=== PATIENT | female | born 1990 | race Caucasian/White ===

== ENCOUNTER 2017-05-03 00:53 | Emergency (ER) | payer OTHER ==
[2017-05-03] MEDS ORDERED: Ondansetron HCl/PF 4 MG/2 ML Vial ONE ×3 (01:30→02:38)
[2017-05-03 01:42] LABS: Bilirubin Negative (Negative); Blood, Urine Negative (Negative); Clarity Hazy (Clear); Glucose, Urine (Dipstick) Negative (Negative); Leukocyte Negative (Negative); Nitrite Negative (Negative); Protein, Urine (Dipstick) 30 mg/dL (Neg-Trace); Specific Gravity, Urine 1.025 (1.005-1.030)
[2017-05-03 01:49] LABS: Bacteria/HPF 1+ HPF (None Seen); RBC/HPF 0-3 HPF (0-3); Squamous Epithelial 0-3 HPF (0-3); WBC/HPF 0-3 HPF (0-3)
[2017-05-03 01:50] LABS: Crystals/HPF 1+ AMORPH URATES HPF (Negative); Other Microscopic Description 1+ MUCUS
[2017-05-03 01:51] LABS: #Basophils 0.1 thou/uL (0.0-0.2); #Lymphocytes 0.8 thou/uL (1.20-3.40); #Monocytes 0.4 thou/uL (0.11-0.59); #Neutrophils 6.7 thou/uL (1.40-6.50); %Basophils 0.7 % (0.0-1.0); %Eosinophils 0.4 % (0.0-10.0); %Lymphocytes 10.3 % (21.0-51.0); %Monocytes 4.8 % (0.0-10.0); %Neutrophils 83.8 % (42.0-75.0); Hemoglobin 13.7 g/dL (12.0-16.0); Mean Corpuscular HGB CONC 35.5 g/dL (32.0-36.0); Mean Corpuscular Hemoglobin 33.1 pg (27.0-31.0); Mean Corpuscular Volume 93.3 fl (81.0-99.0); Mean Platelet Volume 10.6 fL (7.4-10.4); Platelet Count 156 thou/uL (130-400); RBC Distribution Width 12.7 % (11.5-14.5); Red Blood Cell (RBC) Count 4.13 mill/uL (4.20-5.40)
[2017-05-03 02:01] LABS: Anion Gap 16 mmol/L (10-20); BUN (Urea Nitrogen) 8 mg/dL (7.0-18.7); Calc. Creatinine Clearance 0 mL/min (70-130); Calcium 8.7 mg/dL (7.8-10.44); Carbon Dioxide 19 mmol/L (22-29); Chloride 106 mmol/L (98-107); Estimated GFR-MDRD Greater than 90; Glucose 91 mg/dL (70-105); Potassium 4.2 mmol/L (3.5-5.1); Sodium 137 mmol/L (136-145)
[2017-05-03] MEDS ORDERED: Promethazine HCl 25 MG/ML VIAL ONE (03:20)
== END 2017-05-03 07:30 | disposition home or self-care (01) ==
LOC: BURERS 00:53
DX: O99.612 Diseases of the digestive system complicating pregnancy, second trimester (principal); K52.9 Noninfective gastroenteritis and colitis, unspecified; Z3A.27 27 weeks gestation of pregnancy
CPT/HCPCS: 80048; 81003; 81015; 85025; 96361; 96365; 96367; 96376; J2405; J2550

== ENCOUNTER 2017-08-27 15:00 | Outpatient (CLI) | payer OTHER ==
--- NOTE | 2017-08-28 07:27 | RAD ---
THORACIC SPINE TWO VIEWS 08/27/17 No fracture, dislocation, or disc space narrowing was seen. The paravertebral soft tissues are normal in thickness. IMPRESSION: No significant finding. POS: HOME
--- NOTE | 2017-08-28 07:28 | RAD ---
LUMBAR SPINE THREE VIEWS . Comparison is made with an 04/20/13 study. No fracture, dislocation, or disc space narrowing was seen. No bony anomalies were apparent. The SI j oints are symmetrical. IMPRESSION: Stable exam showing no acute finding. POS: HOME
== END 2017-08-27 15:01 | disposition home or self-care (01) ==
LOC: BURRAD 15:00
PROVIDERS: ATTEND Physician Assistant
DX: M54.6 Pain in thoracic spine (principal)
CPT/HCPCS: 72070; 72100

== ENCOUNTER 2018-08-10 17:28 | Emergency (ER) | payer OTHER, SELFPAY ==
--- NOTE | 2018-08-10 22:08 | RAD ---
RIGHT WRIST THREE VIEWS: 08/10/2018 FINDINGS: No fracture or carpal abnormality is seen. All bony structures appear intact. IMPRESSION: No acute findings. POS: HOME
== END 2018-08-10 18:05 | disposition home or self-care (01) ==
LOC: BURERS 17:28
DX: S63.501A Unspecified sprain of right wrist, initial encounter (principal); W22.01XA Walked into wall, initial encounter
CPT/HCPCS: 29125

== ENCOUNTER 2020-08-26 17:11 | Emergency (ER) | payer OTHER ==
[2020-08-26] MEDS ORDERED: Acetaminophen 500 MG TAB ONE (17:40)
[2020-08-27 19:23] LABS: SARS-CoV-2 MS2 Positive; SARS-CoV-2 N Gene Positive; SARS-CoV-2 S Gene Positive; SARS-CoV-2 by NAA DETECTED (NotDetected); SARS-CoV-2 orf1ab Positive
== END 2020-08-26 18:37 | disposition home or self-care (01) ==
LOC: BURERS 17:11
DX: U07.1 COVID-19 (principal); J06.9 Acute upper respiratory infection, unspecified
CPT/HCPCS: 87635; 87804; 99283; U0003

== ENCOUNTER 2021-07-06 12:42 | Emergency (ER) | payer OTHER ==
[2021-07-06] MEDS ORDERED: Famotidine In NaCl 20 mg/50 ml Premix Bag ONE (13:32)
[2021-07-06] MEDS ORDERED: Glycopyrrolate 0.4 MG/ 2 ML VIAL ONE (13:32)
[2021-07-06] MEDS ORDERED: Sodium Chloride 0.9% 1,000 ML ONE (13:32)
[2021-07-06] MEDS ORDERED: Ondansetron PF 4 MG/2 ML Vial ONE (13:32)
[2021-07-06 13:43] LABS: #Basophils 0.1 thou/uL (0.0-0.2); #Lymphocytes 2.1 thou/uL (1.20-3.40); #Monocytes 0.4 thou/uL (0.11-0.59); #Neutrophils 7.3 thou/uL (1.40-6.50); %Basophils 0.6 % (0.0-1.0); %Eosinophils 0.3 % (0.0-10.0); %Monocytes 3.9 % (0.0-10.0); %Neutrophils 74.1 % (42.0-75.0); Hemoglobin 14.2 g/dL (12.0-16.0); Mean Corpuscular HGB CONC 32.8 g/dL (32.0-36.0); Mean Corpuscular Hemoglobin 30.4 pg (27.0-31.0); Mean Corpuscular Volume 92.9 fL (78.0-98.0); Mean Platelet Volume 11.3 fL (7.4-10.4); Platelet Count 189 thou/uL (130-400); RBC Distribution Width 11.2 % (11.5-14.5); Red Blood Cell (RBC) Count 4.65 mill/uL (4.20-5.40); White Blood Cell (WBC) Count 9.9 thou/uL (4.8-10.8)
[2021-07-06 13:48] LABS: ALT (SGPT) 17 U/L (8-55); AST (SGOT) 20 U/L (5-34); Albumin 4.3 g/dL (3.5-5.0); Alkaline Phosphatase 58 U/L (40-110); Anion Gap 15 mmol/L (10-20); BUN (Urea Nitrogen) 10 mg/dL (7.0-18.7); Bilirubin, Total 0.7 mg/dL (0.2-1.2); Calc. Creatinine Clearance 0 mL/min (70-130); Calcium 9.8 mg/dL (7.8-10.44); Carbon Dioxide 23 mmol/L (22-29); Chloride 105 mmol/L (98-107); Globulin 3.2 g/dL (2.4-3.5); Glucose 99 mg/dL (70-105); Lipase 43 U/L (8-78); Protein, Total 7.5 g/dL (6.0-8.3); Sodium 139 mmol/L (136-145)
[2021-07-06 14:42] LABS: Bilirubin Negative (Negative); Blood, Urine Trace (Negative); Clarity Cloudy (Clear); Glucose, Urine (Dipstick) Negative (Negative); Ketone, Urine Negative (Negative); Leukocyte Trace (Negative); Nitrite Positive (Negative); Protein, Urine (Dipstick) Negative (Neg-Trace); Specific Gravity, Urine 1.015 (1.005-1.030); Urobilinogen 0.2 mg/dL (Less than 2)
[2021-07-06 14:44] LABS: Bacteria/HPF 4+ HPF (None Seen); RBC/HPF 0-3 HPF (0-3); Squamous Epithelial 0-3 HPF (0-3)
[2021-07-06] MEDS ORDERED: Sodium Chloride 0.9% 100 ML ONE (15:32)
[2021-07-06] MEDS ORDERED: cefTRIAXone\\ROCEPHIN 1 GM VIAL ONE (15:32)
== END 2021-07-06 17:08 | disposition home or self-care (01) ==
LOC: BURERS 12:42
DX: J02.9 Acute pharyngitis, unspecified (principal); N39.0 Urinary tract infection, site not specified
CPT/HCPCS: 80053; 81003; 81015; 83605; 83690; 85025; 87081; 87430; 87804; 96365; 96374; 96375; J0696; J2405; J3490; J7050

== ENCOUNTER 2022-04-08 12:45 | Emergency (ER) | payer BC, SELFPAY | END 2022-04-08 13:50 | disposition home or self-care (01) | LOC: BURERS 12:45 | DX: S52.521A Torus fracture of lower end of right radius, initial encounter for closed fracture (principal); X50.1XXA Overexertion from prolonged static or awkward postures, initial encounter ==